=== PATIENT | male | born 1995 | race Caucasian/White ===

== ENCOUNTER 2016-11-30 05:36 | Day surgery (SDC) | payer BC, OTHER ==
[2016-11-23 08:23] VITALS: BMI 38.0
--- NOTE | 2016-11-25 11:20 | DIAGNOSTIC IMAGING REPORT ---
CHEST 2 VIEWS ROUTINE CLINICAL HISTORY: M23.672 LEFT KNEE LATERAL MENISCUS TEAR, MEDIAL PATELLOFEMORAL preoperative evaluation COMPARISON STUDY: No previous studies for comparison. FINDINGS: The bones soft tissues and hemidiaphragms are normal. The cardiomediastinal silhouette is normal. The lungs are clear. The pulmonary vasculature is normal. IMPRESSION: Negative chest. Electronically signed by: Feliberto Sim M.D. 11/25/2016 11:19 AM Dictated Date/Time: 11/25/2016 11:19 AM
[2016-11-25 12:20] LABS: BASO % 0.3 %; BASO ABS # 0.02 K/uL (0-0.2); COMPLETE YES; EOS % 1.4 %; HEMATOCRIT 45.2 % (42-52); IG% 0.2 %; LYMPH % 38.2 %; MEAN CELL VOLUME 87.4 fL (80-100); MEAN CORPUSCULAR HEMOGLOBIN 28.4 pg (25-34); MEAN CORPUSCULAR HGB CONC 32.5 g/dl (32-36); MEAN PLATELET VOLUME 12.8 fL (7.4-10.4); MONO % 7.8 %; NEUT % 52.1 %; PLATELET COUNT 200 K/uL (130-400); RED BLOOD COUNT 5.17 M/uL (4.7-6.1); WHITE BLOOD COUNT 5.76 K/uL (4.8-10.8)
[2016-11-25 12:24] LABS: URINE APPEARANCE CLEAR (CLEAR); URINE BILIRUBIN NEG (NEG); URINE COLOR YELLOW; URINE NITRITE NEG (NEG); URINE PH 8.5 (4.5-7.5); URINE SPECIFIC GRAVITY 1.018 (1.000-1.030); UROBILINOGEN NEG (NEG)
[2016-11-25 12:27] LABS: PROTHROMBIN TIME (PATIENT) 10.3 SECONDS (9.0-12.0)
[2016-11-25 12:36] LABS: MANUAL MICROSCOPIC REQUIRED? NO; REVIEW REQ? NO
[2016-11-25 12:39] LABS: BUN/CREATININE RATIO 11.3 (10-20); CALCIUM 9.2 mg/dl (8.5-10.1); POTASSIUM 4.4 mmol/L (3.5-5.1)
--- NOTE | 2016-11-28 23:07 | HISTORY & PHYSICAL EXAMINATION ---
DATE OF ADMISSION: 11/30/2016 SUBJECTIVE AND CHIEF COMPLAINT: Left knee pain. HISTORY OF PRESENT ILLNESS: The patient is a 21-year-old male that initially sustained an injury to his knee about 8 years ago, had a valgus-type injury and sustained an MCL tear, partial ACL tear. His ligamentous injuries ended up healing well. 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 Over the last several years, he has had several patellar dislocations and subluxations. He has been treated conservatively with bracing and physical therapy and anti-inflammatories. He was diagnosed with a large OCD about 2 years ago but was unable to get anything done from a surgical standpoint due to the fact he was unable to take off work. He would like to proceed with a surgical intervention because he complains of patellar pain, instability, and generalized knee clicking, locking and lateral knee pain. PAST MEDICAL HISTORY: The patient denies. PAST SURGICAL HISTORY: He had a left foot surgery. SOCIAL HISTORY: He denies alcohol use. He denies smoking or tobacco use. He denies IV drug use. He lives in a 2-story house. He currently works in retail sales. FAMILY HISTORY: Noncontributory. ALLERGIES: No known drug allergies. MEDICATIONS: The patient denies taking medications. REVIEW OF SYSTEMS: He denies headaches, fevers, chills, double vision, blurry vision, sore throat, cough, chest pain, nausea, vomiting, diarrhea, numbness, tingling, tired, urinary difficulties, thoughts of harming himself or harming others, depression. He is positive for joint pain and joint stiffness of the left knee. OBJECTIVE: GENERAL APPEARANCE: The patient is a 21-year-old male, he is sitting, in no acute distress. He is well dressed, well nourished, and the patient is awake, alert and oriented x3. VITAL SIGNS: He is 6 feet tall, weight 280 pounds. Blood pressure 142/70. HEENT: Extraocular movements are intact. PERRLA. Mucosa is moist. No septal deviation. NECK: Supple with no lymphadenopathy, no JVD, no thyromegaly. HEART: Regular rate and rhythm with no murmurs or gallops. LUNGS: Clear to auscultation. No wheezing or rhonchi. ABDOMEN: Soft, nontender, nondistended. Normal bowel sounds. No hepatosplenomegaly. EXTREMITIES: Paying particular attention to the left lower extremity, he is able to actively extend to 0 degrees, flex to 110 degrees. Ligamentously, he is unstable with a valgus stress test. He has pain and a little bit gapping. He has crepitus with movement and diffuse tenderness over the knee. IMAGING: MRI of the left knee demonstrated a large osteochondral lesion of the lateral femoral condyle, measuring 2.6 cm, tearing of the anterior horn of the lateral meniscus, sequelae to MPFL injury. IMPRESSION: Left knee osteochondral defect, medial patellofemoral ligament tear, lateral meniscal tear. PLAN: The patient is scheduled for a left knee large fresh osteochondral allograft transplant of the left femoral condyle, partial lateral meniscectomy, and medial patellofemoral ligament repair. The patient has had persistent pain and instability despite bracing and anti-inflammatories. He developed patellar instability as well, has a small anterior horn lateral meniscal tear. We discussed restricting measures that could come with the surgical intervention, but he would like to proceed. He is scheduled for a large fresh osteochondral allograft transplant to the lateral femoral condyle, partial lateral meniscectomy, medial patellofemoral ligament reconstruction. Risks and benefits to surgery were discussed that included but not limited to infection, DVT, pain, stiffness, need for revision surgery, failure to relieve all symptoms, re-tear, damage to blood vessels, damage to nerves, risk of anesthesia, and decreased range of motion were all discussed with the patient and the patient wishes to proceed. We discussed that he will need to be toe touch weightbearing for at least 6 weeks and anywhere up to 12 weeks until proper healing and incorporation of the osteochondral transplant into the knee. All questions were answered to his satisfaction. EN
[~2016-11-30] VITALS: Ht 182.9 cm; Wt 127.2 kg
[2016-11-30 05:56] VITALS: BP 148/85; PULSE 83; TEMP 36.3; O2SAT 99; Ht 182.9 cm; Wt 127.2 kg
[2016-11-30] MEDS ORDERED: LACTATED RINGER'S 1000ML 1,000 ML IV SCH (06:00)
[2016-11-30] MEDS ORDERED: CEFAZOLIN 3000 MG/65 ML D5W IV SCH (06:00)
[2016-11-30] MEDS ORDERED: PROPOFOL IV EMULSION 10 MG/ML 20 ML VIAL IV ONE (06:56)
[2016-11-30] MEDS ORDERED: MIDAZOLAM HCL 1 MG/ML 2ML VIAL ONE ×2 (06:56→07:09)
[2016-11-30] MEDS ORDERED: LIDOCAINE HCL 2% 2 ML VIAL (20MG/ML) ONE (06:56)
[2016-11-30] MEDS ORDERED: ROCURONIUM BROMIDE 10 MG/ML 5 ML VIAL ONE (06:56)
[2016-11-30] MEDS ORDERED: FENTANYL CITRATE INJ 50 MCG/1 ML 2 ML VIAL ONE ×2 (06:57→09:40)
[2016-11-30] MEDS ORDERED: KETAMINE HCL INJ 50 MG/ML 10 ML VIAL ONE (07:06)
[2016-11-30] MEDS ORDERED: LACTATED RINGER'S 1000ML 1,000 ML IV PRN (07:07)
[2016-11-30] MEDS ORDERED: LIDOCAINE/EPINEPHRINE 1% 20 ML VIAL ONE (07:09)
[2016-11-30] MEDS ORDERED: BUPIVACAINE 0.5 % 5 MG/1 ML MPF 30ML VIAL ONE (07:10)
[2016-11-30] MEDS ORDERED: EpINEphrine HCL INJ 1 MG/ML 5ML SYRINGE ONE (07:10)
[2016-11-30] MEDS ORDERED: CLONIDINE HCL 100 MCG/ML SYRINGE ONE (07:12)
[2016-11-30] MEDS ORDERED: BUPIVACAINE 0.5 % 5 MG/1 ML PF 10ML VIAL ONE (07:12)
[2016-11-30] MEDS ORDERED: FENTANYL CITRATE INJ 50 MCG/1 ML 2 ML VIAL IV PRN (07:15)
[2016-11-30] MEDS ORDERED: ONDANSETRON INJ 2 MG/ML 2 ML VIAL IV PRN ×2 (07:15→12:45)
[2016-11-30] MEDS ORDERED: HYDROmorphone INJ 1 MG/ML SYR IV PRN (07:15)
[2016-11-30] MEDS ORDERED: MoRPHine SULFATE 10 MG/ML CARP/VIAL IV PRN (07:15)
--- NOTE | 2016-11-30 07:15 | History & Physical Bridge Note ---
H&P Re-Evaluation Bridge Note: I have examined the patient, reviewed the History & Physical and in the interval since the performance of the History & Physical I have noted the following changes of clinical significance: No changes noted
[2016-11-30] MEDS ORDERED: HYDROmorphone INJ 2 MG/ML SYR/VIAL ONE (07:50)
[2016-11-30] MEDS ORDERED: NURSING VERBAL MED ORDER ONE (08:15)
[2016-11-30] MEDS ORDERED: ROPIVACAINE 5MG/ML 30 ML 150 MG, BUPIVACAINE/EPINEPHR 0.5% MPF 30 ML, KETOROLAC TROMETH... INFIL SCH ×7 (09:00)
[2016-11-30] MEDS ORDERED: BACITRACIN 50000 UNIT VIAL ONE (09:15)
--- NOTE | 2016-11-30 11:41 | DIAGNOSTIC IMAGING REPORT ---
INTRAOPERATIVE RADIOGRAPHS CLINICAL HISTORY: Chondroplasty of the left knee. Fluoroscopy time: 33 seconds. FINDINGS: 2 spot fluoroscopic views of the left knee are presented. A surgical probe projects over the femoral condyles. IMPRESSION: Intraoperative images from a left knee chondroplasty procedure. See operative report for detailed findings. Electronically signed by: Konrad Vuong M.D. 11/30/2016 11:40 AM Dictated Date/Time: 11/30/2016 11:39 AM
--- NOTE | 2016-11-30 12:35 | [facility] Post Operative Brief Note ---
Immediate Operative Summary Operative Date November 30, 2016. Pre-Operative Diagnosis Left knee osteochondral defect, medial patellofemoral ligament tear, lateral meniscal tear. Post-Operative Diagnosis Left knee osteochondral defect, medial patellofemoral ligament tear, lateral meniscal tear, chondromalacia patella Procedure(s) Performed Left Knee Arthroscopy with Partial Lateral Menisectomy, Medial Patello Femoral Ligament Reconstruction, Open Lateral Femoral Osteochondral Allograft Transplant, Chondroplasty of Patella Surgeon Dr. Titus Passenger Barge Master Surgeon(s) Jhonatan Mccoy PA-C Estimated Blood Loss 100ml Findings above Specimens none per surgeon Drains 0 Anesthesia geta, femoral nerve block Complication(s) None Disposition Recovery Room / PACU
[2016-11-30] MEDS ORDERED: OXYCODONE/ACETAMINOPHEN 5-325 TAB PO PRN (12:45)
[2016-11-30] MEDS ORDERED: IBUPROFEN 200 MG TAB PO PRN (12:45)
[2016-11-30] MEDS ORDERED: MoRPHine SULFATE 4 MG/ML 1 ML CARP\\VIAL IV PRN (12:45)
[2016-11-30] MEDS ORDERED: OXYSR10 PO ×2 (12:48)
[2016-11-30] MEDS ORDERED: OXYC-57 PO ×2 (12:48)
--- NOTE | 2016-11-30 12:56 | Discharge Instructions ---
Discharge Instructions Date of Service November 30, 2016. Admission Reason for Admission: Left Knee Lateral Meniscus Tear, Medial Patellofem Discharge Discharge Diagnosis / Problem: S/PLeft knee lateral meniscectomy MPFL repair OCD transplant with allograft Discharge Goals Goal(s): Decrease discomfort, Improve function Activity Recommendations Activity Limitations: per Instructions/Follow-up section . Instructions / Follow-Up Instructions / Follow-Up ACTIVITY RECOMMENDATIONS: * Begin physical therapy 1 week after surgery. * Toe Touch weight bearing for 6 weeks. Keep immobilizer on at all times besides doing physical therapy SPECIAL CARE INSTRUCTIONS: * Change dressing before leaving hospital. * Apply ice to knee for 72 hours after surgery. * Knee immobilizer in extension for the first week except for range of motion exercises. * Call office at if there are any problems such as excessive wound drainage or increased temperature above 100 degrees F. FOLLOW UP VISIT: If appointment is not already scheduled: Please call [facility] to make a follow-up appointment with Dr. Fischer or his PA 10-14 days after your surgery at . Current Hospital Diet Patient's current hospital diet: Regular Diet Discharge Diet Recommended Diet: Regular Diet Procedures Procedures Performed: Left Knee Arthroscopy with Partial Lateral Menisectomy, Medial Patello Femoral Ligament Reconstruction, Open Lateral Femoral Osteochondral Allograft Transplant, Chondroplasty of Patella Pending Studies Studies pending at discharge: no Medical Emergencies . Who to Call and When: Medical Emergencies: If at any time you feel your situation is an emergency, please call 911 immediately. . Non-Emergent Contact Non-Emergency issues call your: Surgeon Call Non-Emergent contact if: temperature is above 101.5, your pain is worsening, wound has increased drainage, wound has increased redness . "Provider Documentation" section prepared by Jhonatan Mccoy. . VTE Core Measure Inpt VTE Proph given/why not?: Treatment not indicated [place] Drug Monitoring Program Search Results: patient reviewed within database, no issues identified
--- NOTE | 2016-11-30 13:36 | Anesthesiology Progress Note ---
Anesthesia Post Op Note Date & Time November 30, 2016 at 13:35 Vital Signs Pain Intensity: 0 Vital Signs Past 12 Hours Date Time Temp Pulse Resp B/P Pulse Ox O2 Delivery O2 Flow Rate FiO2 11/30/16 13:20 81 17 121/66 99 Nasal Cannula 2 11/30/16 13:10 92 17 120/68 99 Mask 10 11/30/16 13:00 105 18 141/67 99 Mask 10 11/30/16 12:50 101 17 133/70 100 Mask 10 11/30/16 12:43 36.0 103 22 144/67 100 Mask 10 11/30/16 05:56 36.3 83 18 148/85 99 Room Air Notes Mental Status: alert / awake / arousable, participated in evaluation Pt Amnestic to Procedure: Yes Nausea / Vomiting: adequately controlled Pain: adequately controlled Airway Patency, RR, SpO2: stable & adequate BP & HR: stable & adequate Hydration State: stable & adequate Anesthetic Complications: no major complications apparent Pt still sleepy after long surgery but doing well. No pain.
[2016-11-30 14:00] VITALS: BP 137/74; PULSE 97; TEMP 36.8; O2SAT 95
[2016-11-30 14:30] VITALS: BP 130/62; PULSE 98; TEMP 36.4; O2SAT 97
[2016-11-30 15:00] VITALS: BP 135/69; PULSE 109; TEMP 36.5; O2SAT 97
--- NOTE | 2016-11-30 16:32 | OPERATIVE REPORT ---
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 POSTOPERATIVE DIAGNOSES: Same plus chondromalacia patellae. PROCEDURES: Left knee fresh osteochondral allograft transplant to the lateral femoral condyle, medial patellofemoral ligament reconstruction, partial lateral meniscectomy and chondroplasty patella. SURGEON: Dr. Titus. SAMPLE SHOE INSPECTOR AND REWORKER: Jhonatan Mccoy PA-C who was necessary for assistance of procedure with position, prepping, draping, retraction and closure. ANESTHESIA: General endotracheal anesthesia with femoral nerve block. SPECIMENS: None. COMPLICATIONS: None. ESTIMATED BLOOD LOSS: 100 mL. INDICATIONS: The patient is a 21-year-old male with long-standing pain and instability in the left knee. He has a large osteochondral defect in the lateral femoral condyle measuring approximately 20-21 mm in width x 30-31 mm in length and approximately 10 mm in depth in certain regions. The cartilage fragment is unstable. He has also had recurrent patellar dislocations, which has failed conservative measures including bracing and physical therapy. Imaging demonstrates slightly flattened trochlea and lateral subluxation of the patella. Given the size of his osteochondral lesion, I recommended fresh osteochondral allograft transplantation given the amount of bony loss and size of the defect, did not feel any other procedure would give adequate treatment to the deficit. Also recommended medial patellofemoral ligament reconstruction given his multiple recurrent patellar dislocations despite bracing and therapy. Risks, benefits, and alternatives of surgery including but not limited to infection, DVT, pain, stiffness, need for urgent surgery, failure to relieve all symptoms, failure of incorporation of the graft, recurrent instability, damage to blood vessels, damage to nerves, risks of anesthesia were discussed with patient and he wished to proceed. DESCRIPTION OF PROCEDURE: The patient was identified, laterality was confirmed and marked. He received a preoperative antibiotic. He was transferred to the operating room, placed in the supine position, induced with general endotracheal anesthesia. He also received a femoral nerve block per the anesthesia staff. A well-padded tourniquet was placed on the leg, limb was prepped and draped in the usual sterile manner with ChloraPrep. Limb was exsanguinated and tourniquet was inflated. I made a standard anterolateral viewing portal made through a stab incision, bluntly entered the suprapatellar pouch and under spinal localization established anteromedial portal and began our arthroscopy. A small region of grade 2 change in the medial aspect of the patella, unstable chondral flaps debrided back to a stable base utilizing a shaver. The trochlea was flattened and the patella sat laterally. Cartilage of the medial femoral condyle and medial tibial plateau was normal. Medial meniscus was normal upon probing. ACL was probed and found to be taut. The PCL was normal. Inspected the lateral compartment. A complex tear of the anterior horn of the lateral meniscus extending into the body, this was debrided back to a stable base utilizing a shaver. The posterior horn was normal. Cartilage of the lateral tibial plateau was relatively normal. He had evidence of his osteochondritis dissecans lesion laterally. The cartilage flap was unstable upon probing. No other loose bodies were identified. I removed the arthroscopy equipment and then made a longitudinal incision just lateral to the midline, sharply incising through the skin utilizing Bovie electrocautery to achieve hemostasis. I developed the patella paratenon, mobilized this laterally and then performed a lateral arthrotomy. I excised a portion of the fat pad for visualization purposes taking care to preserve the lateral meniscus. We placed a Z retractor in the intercondylar notch and another laterally. We exposed the defect. The cartilage in the region of the defects was grossly unstable. This was removed with a rongeur. I then utilized a curette to slowly peel away any unstable cartilage and to expose the entirety of the osteochondral defect and to expose the bone. Once I was satisfied with this, we started sizing for our graft. We elected to utilize the ArthPaxfire Bio[employer] system for formation of the osteochondral allograft plug. We selected the size large 20 as this had the best coverage of the defect as well as the best match for the radius of curvature. We took the fresh osteochondral allograft that had been patient matched based on preoperative MRI, sawed off the more proximal femoral portion to better fit on to the graft fracture table and then set it with the 4 set screws to hold it in position. I then found the appropriate contouring of the guide onto the graft and then pinned in to place. We marked the proposed cut on the graft with a marking pen and confirmed we liked our cut and that we would not cut through either medially or laterally. Once I was satisfied with the positioning, we pinned it into place. We then used the impaction punch to impact the graft. We then placed the cutting guide onto the impaction jig to saw the graft out of the donor bone. We then used the extraction device to pop the graft out of the cutting device. We placed into the sizing trial, we were a little proud superiorly. This was rongeured down just a touch and then it fit quite flush. I beveled the ends to facilitate better insertion of the graft. I then utilized antibiotic impregnated pulsatile fluid to remove bone marrow elements from the bone of the donor plug. The graft was then soaked in antibiotic saline. We then prepared the patient's bone using the L20 cutting guide. We placed 2 guide pins into the femur and then used the reamer stop on 1 fill, reamed down on the other side and then repeated this process switching the reamer stop to the other pin and then reaming down on the anterior side. I then used the punch to cut the remaining bony bridge and this was removed with a combination of rongeur as well as a curette. There was some sclerotic bone that was rongeured, there was also some cystic defects that were curetted out as well as cystic material were removed with the rongeur. I then performed a microfracture of the sclerotic bone with a drill bit. This area was thoroughly irrigated, I then impacted some cancellous bone graft into the bony defects as well as some DBX. The donor bone was then placed into the patient's knee in a press-fit manner and then I impacted the bone with the impaction device. The plugs sat quite nicely, quite flush, the cartilage surfaces superiorly, medially as well as inferiorly sat well. He had some bone loss a little bit laterally, but this was in a region that was extraarticular and this appeared to be more secondary to his bone loss than to any other function. I placed a little bit of DBX material in this region laterally. I took the knee through full range of motion, the plug was stable, no impediment to range of motion was appreciated. The lateral arthrotomy was closed with interrupted #1 Vicryl suture, subcutaneous tissue was closed with interrupted 2-0 Vicryl suture and the skin with running 4-0 Monocryl. We then turned our attention to the MPFL reconstruction portion of the procedure, we had let the tourniquet down, but at this point a medial incision medial to the patella, sharply incising through the skin utilizing Bovie electrocautery to achieve hemostasis. I dissected down through layers 2 and 3, dissected medially and then made an incision over the medial femoral condyle, dissected down to bone. Under fluoroscopic guidance, I made a drill hole in the superior pole of the patella as well as the midpole of the patella and then over reamed with a 4.5 mm reamer and capped for a 4.75 mm SwiveLock interference screw. Then under fluoroscopic guidance we placed a tunnel into the femur. Utilizing the posterior cortex and Blumensaat line to identify the appropriate insertion site for the [place] MPFL, then drilled a guidepin over this and then reamed with a 6 mm reamer. I shuttled a shuttling suture through the femoral tunnel and then another shuttling suture through the deep tissues between layers 2 and 3 on the medial side. I then took a semitendinosis allograft, we whipstitched with 2-0 Ethibond and then loaded into a 4.75 mm Composite SwiveLock, placed one into the superior pole of the patella and docked it into the bone, had good tension in this region and repeated this process for the midpole screw. I then shuttled the tendon between layers 2 and 3 and then used another shuttling suture to dock it into the femoral tunnel. With the knee in about 30 degrees of flexion, we held the graft on tension and then placed a Composite 6 mm interference screw into the femur. We had good tensioning of the graft. We then started to utilize #2 FiberWire to close the [place] MPFL over the graft and as we were doing this, the midpole SwiveLock pulled through the bone. We tried to position a larger 5.5 mm SwiveLock in the same position, but the inferior cortex was quite soft and was not holding any fixation. So we then took the #2 FiberWire from the other SwiveLock that still had good fixation and tied the graft on to this and then pulled the Ethibond sutures through this into the proximal tissue and tied it over this to reinforce it. We still had good stability to both limbs of the graft and good stability to the patella. The wounds were thoroughly irrigated. The VMO was imbricated with interrupted #1 Vicryl suture, subcutaneous tissue was closed with interrupted 2-0 Vicryl suture and the skin with running 4-0 Monocryl. Portal site was closed with nylon and deep tissues were anesthetized with an Orthomix solution. All needle and sponge counts were correct at the end of the procedure. The patient was transferred to the PACU in stable condition without apparent complication after sterile dressing was applied and a knee immobilizer placed. I attest to the content of the Intraoperative Record and any orders documented therein. Any exceptions are noted below. MTDD
== END 2016-11-30 15:07 | disposition home or self-care (01) ==
LOC: C.ACU 05:36
PROVIDERS: ATTEND Orthopaedic Surgery
DX: M93.262 Osteochondritis dissecans, left knee (principal); M23.201 Derangement of unspecified lateral meniscus due to old tear or injury, left knee; M25.362 Other instability, left knee; S76.112A Strain of left quadriceps muscle, fascia and tendon, initial encounter; X58.XXXA Exposure to other specified factors, initial encounter

== ENCOUNTER 2016-11-30 21:26 | Emergency (ER) | payer OTHER ==
[~2016-11-30] VITALS: Ht 182.9 cm; Wt 94.6 kg
[~2016-11-30 21:26] MED LIST: OXYC-57 PO; OXYSR10 PO
[2016-11-30 21:29] VITALS: TEMP 36.8; Ht 182.9 cm; Wt 94.6 kg
--- NOTE | 2016-11-30 22:27 | DIAGNOSTIC IMAGING REPORT ---
LEFT KNEE 1 OR 2 VIEWS ROUTINE CLINICAL HISTORY: Pain status post trauma. Recent surgery. COMPARISON: 11/30/2016 DISCUSSION: No acute fractures are visualized. There are screw holes present within the patella. There is evidence for a bone graft within the lateral femoral condyle of the distal femur. The findings remain similar to the intraoperative radiograph performed earlier in the day. IMPRESSION: Postsurgical changes of a lateral femoral condylar bone graft. No significant change when compared with the intraoperative radiographs performed earlier in the day Electronically signed by: Michael Steven M.D. 11/30/2016 10:26 PM Dictated Date/Time: 11/30/2016 10:24 PM
[2016-11-30 23:08] VITALS: BP 138/62; PULSE 86; O2SAT 97
--- NOTE | 2016-12-01 00:10 | EMERGENCY ROOM VISIT NOTE ---
History First contact with patient: 21:42 Chief Complaint: FALL Stated Complaint: FELL AFTER HAVING SURGERY History of Present Illness The patient is a 21 year old male who presents to the Emergency Room with complaints of fall that occurred just prior to arrival. The patient had orthopedic left knee surgery approximately [address] Titus. Patient states that he recovered well, and made it home without any difficulty. He slept for several hours, and when he awoke from sleep and felt that he had used the bathroom. The patient has not had much to eat today, and he reports that as he stood up, his right leg gave out, causing him to fall onto his left knee. He states that the left knee bent nearly in full in the fall. The patient was wearing his knee immobilizer, but he essentially broke this in the fall as well. The patient does not have pain, but this is expected as he had a nerve block that continues to remain intact. The patient did not suffer new injury or strike his head. He has not noticed significant bleeding or other injury. He rates his current discomfort a 0/10. Review of Systems More than 10 systems were reviewed and otherwise negative with the exception of history of present illness. Past Medical/Surgical History Medical Problems: (1) No significant past medical history Surgical Problems: (1) No significant past surgical history Family History No pertinent family history Social History Smoking Status: Never Smoker Alcohol Use: occasionally Marital Status: single Occupation Status: employed Current/Historical Medications Scheduled Oxycodone HCl (Oxycontin), 10 MG PO Q12 Scheduled PRN Oxycodone/Acetaminophen 5MG/325MG (Percocet 5MG/325MG), 1-2 TABLETS PO Q4-6H PRN for Pain Allergies Coded Allergies: No Known Allergies (Unverified , 11/30/16) Physical Exam Vital Signs Date Time Temp Pulse Resp B/P Pulse Ox O2 Delivery O2 Flow Rate FiO2 11/30/16 23:08 86 18 138/62 97 Room Air 11/30/16 21:29 36.8 116 16 120/64 98 Room Air Pain Rating (0-10): 0 Physical Exam VITALS: Vitals are noted on the nurse's note and reviewed by myself. Vital signs stable. GENERAL: Well-developed, well-nourished, white male, who is in no acute distress and resting comfortably. Patient is cooperative with the examination. HEAD: Normocephalic atraumatic. HEART: Regular rate and rhythm without murmurs gallops or rubs. LUNGS: Clear to auscultation bilaterally without wheezes, rales or rhonchi. No retractions or accessory muscle use. MUSCULOSKELETAL: No significant deformity or tenderness of the upper extremities or right lower leg. The left leg is with well approximated sutures and Steri-Strips throughout. There is no evidence of dehiscence or significant bleeding. The patient is without sensation along the anterior thigh into the patella. Pulses are intact and normal. NEURO: Patient was alert and oriented to person place and time. CN II through XII grossly intact. Medical Decision & Procedures ER Provider Diagnostic Interpretation: LEFT KNEE 1 OR 2 VIEWS ROUTINE CLINICAL HISTORY: Pain status post trauma. Recent surgery. COMPARISON: 11/30/2016 DISCUSSION: No acute fractures are visualized. There are screw holes present within the patella. There is evidence for a bone graft within the lateral femoral condyle of the distal femur. The findings remain similar to the intraoperative radiograph performed earlier in the day. IMPRESSION: Postsurgical changes of a lateral femoral condylar bone graft. No significant change when compared with the intraoperative radiographs performed earlier in the day ED Course Physical exam and history were performed. Nursing notes and EMR were reviewed. Patient appears to have suffered a mechanical fall at home, possibly injuring his left knee that was surgically repaired earlier today. After presentation I did discuss the case with the patient's surgeon, Dr Titus. The patient does not appear to have dehisced his wounds. His nerve block appears intact and the wounds are without significant bleeding. The patient essentially does not have any new injury that is appreciated on exam. Recommendation was for repeat x- rays, which were performed here in the department. The x-rays do not show evidence of new injury, and appear similar to the intraoperative imaging. The patient does not have pain, likely from his nerve block. He does have adequate pain medication at home that he may take if necessary. The patient's dressing was reapplied by staff. The patient was given a new immobilizer for his knee. The patient will follow-up with Dr Titus tomorrow for further care and management. He was otherwise invited back to the ER with any new, worsening , or concerning symptoms. The chart was completed utilizing [employer] Voice Recognition Software. Grammatical errors, random word insertions, pronoun errors, and incomplete sentences are an occasional consequence of this system due to software limitations, ambient noise, and hardware issues. Any formal questions or concerns about the content, text, or information contained within the body of this dictation should be directly addressed to the provider for clarification. . Medical Decision Differential diagnosis includes, but is not limited to: Sprain, strain, fracture , dislocation, subluxation, contusion, and others Impression Primary Impression: Fall Additional Impression: Injury of left knee Departure Information Dispostion Home / Self-Care Condition GOOD Referrals Sriram Titus M.D. Forms HOME CARE DOCUMENTATION FORM, IMPORTANT VISIT INFORMATION Patient Instructions My [facility] Additional Instructions You were seen and evaluated today on an emergency basis only. This is not a substitute for, or an effort to provide, complete comprehensive medical care. It is not possible to recognize and treat all injuries or illnesses in a single emergency department visit. For this reason it is recommended that you followup with [facility] , Dr Titus's office, tomorrow for ongoing care and evaluation. Call the office first thing in the morning to help make her appointment. Let them know we spoke with Dr. Titus directly. Continue your instructions as previously directed You are welcome to return to the emergency department anytime with new, worsening, or concerning symptoms. Problem Qualifiers
== END 2016-11-30 23:09 | disposition home or self-care (01) ==
LOC: C.EDB 21:27 → C.EDD 23:09
DX: S89.92XA Unspecified injury of left lower leg, initial encounter (principal); W18.39XA Other fall on same level, initial encounter; Z98.890 Other specified postprocedural states